=== PATIENT | female | born 1990 | race Caucasian/White ===

== ENCOUNTER 2017-12-03 14:19 | Emergency (ER) | payer OTHER ==
[~2017-12-03] VITALS: Ht 162.5 cm; Wt 95.3 kg
[~2017-12-03 14:19] MED LIST: AMOXIL500 MG PO; ATARAX25 MG PO; CEPHALEXIN500 M1 PO; CLARITIN-D 12 H1 TAB PO; COLACE100 MG PO; DOCUSATE SODIU100 M2 PO; FERROUS SULFAT325 MG PO; IBU-8800 MG PO; IRON325 M1; MOTRIN800 MG PO; NKHM; OXYCODONE5 MG; PERCOCET 325 MG1 TA7 PO; PREDNICOT20 MG PO; PREDNISONE20 MG PO; PRENATAL1 TA1 PO; PRENATAL1 TAB PO; PREVACID30 M1 PO; ROBAXIN750 MG PO; SEROQUEL25 MG PO; TOBRADEX 0.1%-2.5 M1 OP; TRAMADOL HCL50 MG PO; VISTARIL25 M2 PO; XANAX1 MG PO; ZITHROMAX Z PA250 MG PO; ZITHROMAX250 MG PO
== END 2017-12-03 15:31 | disposition other institution (70) ==
LOC: ED 14:19
DX: O26.893 Other specified pregnancy related conditions, third trimester (principal); Z3A.37 37 weeks gestation of pregnancy

== ENCOUNTER 2017-12-18 22:35 | Emergency (ER) | payer OTHER ==
[~2017-12-18] VITALS: Ht 162.5 cm; Wt 85.7 kg
[2017-12-18 23:35] LABS: BASO % 0.3 % (0.0-1.0); EOS % 0.3 % (1.0-4.0); HEMATOCRIT 35.2 % (37.0-47.0); HEMOGLOBIN 10.8 g/dl (12.0-16.0); LYMPH # 1.6 10*3/uL (1.3-4.4); LYMPH % 14.1 % (27.0-41.0); MEAN CELL VOLUME 85.4 fl (81.0-99.0); MEAN CORPUSCULAR HGB 26.2 pg (27.0-31.0); MEAN CORPUSCULAR HGB CONC 30.7 g/dl (33.0-37.0); MEAN PLATELET VOLUME 9.9 fl (9.6-12.3); MONO # 0.6 10*3/uL (0.1-1.0); NEUT # 8.9 10*3/uL (2.3-7.9); NEUT % 79.6 % (47.0-73.0); PLATELET COUNT AUTOMATED 263 10*3/uL (130-400); RED BLOOD COUNT 4.12 10*6/uL (4.10-5.10); RED CELL DISTRI WIDTH 15.5 % (0-14.5); WHITE BLOOD COUNT 11.2 10*3/uL (4.8-10.8)
[2017-12-18 23:51] LABS: ALBUMIN 2.8 gm/dl (3.1-4.5); ALKALINE PHOSPHATASE 107 U/L (45-117); BUN 10 mg/dl (7-24); CHLORIDE 108 mmol/L (98-107); CREATININE 0.64 mg/dL (0.55-1.02); POTASSIUM 3.3 mmol/L (3.5-5.1); SGOT/AST 8 IU/L (3-35); SGPT/ALT 11 U/L (12-78); SODIUM 140 mmol/L (136-145)
[2017-12-19 00:46] LABS: BILIRUBIN NEGATIVE (NEGATIVE); BLOOD 3+ (NEGATIVE); CLARITY CLEAR (CLEAR); COLOR YELLOW (YELLOW); GLUCOSE NEGATIVE (NEGATIVE); KETONE NEGATIVE (NEGATIVE); LEUKO ESTERASE 2+ (NEGATIVE); NITRITE NEGATIVE (NEGATIVE); UROBILINOGEN 0.2 E.U./dl (0.2-1.0)
[2017-12-19] MEDS ORDERED: FLOMAX0.4 MG PO (00:50)
[2017-12-19] MEDS ORDERED: TYLENOL325 M1 PO (00:50)
[2017-12-19 01:06] LABS: BACTERIA TRACE; RBC 16-20 rbc/hpf (0-2); WBC 31-40 wbc/hpf (0-5)
[2017-12-19] MEDS ORDERED: CEPHALEXIN500 M1 PO (01:11)
[2017-12-19] MEDS ORDERED: SEPTDS PO (01:11)
[2017-12-19] MEDS ORDERED: HIBICLENS118 ML T (01:26)
== END 2017-12-19 01:16 | disposition home or self-care (01) ==
LOC: ED 22:35
PROVIDERS: Nurse Practitioner
DX: O85 Puerperal sepsis (principal); O90.0 Disruption of cesarean delivery wound; O86.29 Other urinary tract infection following delivery; O99.335 Smoking (tobacco) complicating the puerperium; F17.200 Nicotine dependence, unspecified, uncomplicated; Z71.6 Tobacco abuse counseling

== ENCOUNTER 2019-01-06 12:01 | Emergency (ER) | payer MEDICAID ==
[~2019-01-06] VITALS: Ht 162.5 cm; Wt 81.6 kg
[~2019-01-06 12:01] MED LIST changes: +FLOMAX0.4 MG PO; +HIBICLENS118 ML T; +SEPTDS PO; +TYLENOL325 M1 PO
== END 2019-01-06 13:46 | disposition home or self-care (01) ==
LOC: ED 12:01
DX: S93.402A Sprain of unspecified ligament of left ankle, initial encounter (principal); X50.1XXA Overexertion from prolonged static or awkward postures, initial encounter; Y93.01 Activity, walking, marching and hiking; Y92.89 Other specified places as the place of occurrence of the external cause; Y99.0 Civilian activity done for income or pay

== ENCOUNTER 2019-04-28 13:23 | Emergency (ER) | payer MEDICAID ==
[~2019-04-28] VITALS: Ht 5334 cm
[2019-04-28 13:50] LABS: BILIRUBIN NEGATIVE (NEGATIVE); CLARITY SL CLOUDY (CLEAR); COLOR YELLOW (YELLOW); GLUCOSE NEGATIVE (NEGATIVE); KETONE NEGATIVE (NEGATIVE)
[2019-04-28 13:51] LABS: BLOOD TRACE-INTACT (NEGATIVE); EPITHELIAL CELLS TNTC; LEUKO ESTERASE TRACE (NEGATIVE); NITRITE NEGATIVE (NEGATIVE); PH 5.5 (5.0-9.0); RBC 0-2 rbc/hpf (0-2); SPECIFIC GRAVITY >= 1.030 (1.005-1.030); UROBILINOGEN 0.2 E.U./dl (0.2-1.0)
[2019-04-28] MEDS ORDERED: PRENATAL TABLE1 EAC2 PO (13:59)
== END 2019-04-28 14:05 | disposition home or self-care (01) ==
LOC: ED 13:23
PROVIDERS: Nurse Practitioner Family
DX: Z32.00 Encounter for pregnancy test, result unknown (principal); F17.200 Nicotine dependence, unspecified, uncomplicated; Z79.2 Long term (current) use of antibiotics; Z79.899 Other long term (current) drug therapy

== ENCOUNTER 2020-03-24 16:57 | Emergency (ER) | payer MEDICAID ==
[~2020-03-24] VITALS: Ht 162.5 cm; Wt 81.2 kg
[~2020-03-24 16:57] MED LIST changes: +PRENATAL TABLE1 EAC2 PO
[2020-03-24] MEDS ORDERED: 'XANAX1 MG PO (17:25)
[2020-03-24] MEDS ORDERED: MINIPRESS1 M1 PO (17:25)
[2020-03-24] MEDS ORDERED: IBUPROFEN600 MG PO ×2 (18:45)
== END 2020-03-24 18:46 | disposition home or self-care (01) ==
LOC: ED 16:57
DX: S83.92XA Sprain of unspecified site of left knee, initial encounter (principal); Z79.899 Other long term (current) drug therapy; X58.XXXA Exposure to other specified factors, initial encounter; Y93.89 Activity, other specified; Y92.89 Other specified places as the place of occurrence of the external cause; Y99.8 Other external cause status

== ENCOUNTER 2020-05-08 17:42 | Emergency (ER) | payer MEDICAID ==
[~2020-05-08] VITALS: Ht 162.5 cm; Wt 77.6 kg
[~2020-05-08 17:42] MED LIST changes: +'XANAX1 MG PO; +IBUPROFEN600 MG PO; +MINIPRESS1 M1 PO
== END 2020-05-08 23:26 | disposition home or self-care (01) ==
LOC: ED 17:42
DX: S92.511A Displaced fracture of proximal phalanx of right lesser toe(s), initial encounter for closed fracture (principal); F17.200 Nicotine dependence, unspecified, uncomplicated; Z86.14 Personal history of Methicillin resistant Staphylococcus aureus infection; W22.8XXA Striking against or struck by other objects, initial encounter; Y93.72 Activity, wrestling; Y92.89 Other specified places as the place of occurrence of the external cause; Y99.8 Other external cause status

== ENCOUNTER 2020-11-20 16:17 | Emergency (ER) | payer OTHER ==
[~2020-11-20] VITALS: Ht 162.5 cm; Wt 81.2 kg
[2020-11-20] MEDS ORDERED: TYLENOL325 M1 PO (18:33)
[2020-11-20] MEDS ORDERED: NAPROXEN250 MG PO (18:33)
== END 2020-11-20 19:26 | disposition home or self-care (01) ==
LOC: ED 16:17
DX: S93.401A Sprain of unspecified ligament of right ankle, initial encounter (principal); F17.200 Nicotine dependence, unspecified, uncomplicated; E66.9 Obesity, unspecified; W10.8XXA Fall (on) (from) other stairs and steps, initial encounter; Y93.F9 Activity, other caregiving; Y92.238 Other place in hospital as the place of occurrence of the external cause; Y99.0 Civilian activity done for income or pay

== ENCOUNTER 2020-12-31 18:42 | Emergency (ER) | payer OTHER ==
[~2020-12-31] VITALS: Ht 162.5 cm; Wt 95.3 kg
[~2020-12-31 18:42] MED LIST changes: +NAPROXEN250 MG PO
[2020-12-31] MEDS ORDERED: NAPROXEN250 MG PO (20:15)
== END 2020-12-31 20:20 | disposition home or self-care (01) ==
LOC: ED 18:42
DX: S83.92XA Sprain of unspecified site of left knee, initial encounter (principal); Z79.899 Other long term (current) drug therapy; X50.1XXA Overexertion from prolonged static or awkward postures, initial encounter; Y93.72 Activity, wrestling; Y92.098 Other place in other non-institutional residence as the place of occurrence of the external cause; Y99.8 Other external cause status

== ENCOUNTER 2021-09-08 12:12 | Emergency (ER) | payer OTHER ==
[~2021-09-08] VITALS: Wt 84.8 kg
== END 2021-09-08 14:07 | disposition home or self-care (01) ==
LOC: ED 12:12
DX: S93.491A Sprain of other ligament of right ankle, initial encounter (principal); X50.1XXA Overexertion from prolonged static or awkward postures, initial encounter; Y93.89 Activity, other specified; Y92.89 Other specified places as the place of occurrence of the external cause; Y99.8 Other external cause status

== ENCOUNTER 2022-03-12 12:38 | Emergency (ER) | payer OTHER ==
[~2022-03-12] VITALS: Ht 167.6 cm; Wt 90.7 kg
== END 2022-03-12 13:58 | disposition left against medical advice (07) ==
LOC: ED 12:38
DX: M25.571 Pain in right ankle and joints of right foot (principal); Z53.21 Procedure and treatment not carried out due to patient leaving prior to being seen by health care provider

== ENCOUNTER 2023-02-27 13:05 | Emergency (ER) | payer OTHER ==
[~2023-02-27] VITALS: Ht 162.5 cm; Wt 81.2 kg
== END 2023-02-27 16:31 | disposition home or self-care (01) ==
LOC: ED 13:05
DX: N91.2 Amenorrhea, unspecified (principal)

== ENCOUNTER 2023-03-11 16:55 | Emergency (ER) | payer OTHER ==
[~2023-03-11] VITALS: Wt 81.2 kg
== END 2023-03-11 20:09 | disposition home or self-care (01) ==
LOC: ED 16:55
DX: S93.401A Sprain of unspecified ligament of right ankle, initial encounter (principal); X50.1XXA Overexertion from prolonged static or awkward postures, initial encounter; Y93.89 Activity, other specified; Y92.89 Other specified places as the place of occurrence of the external cause; Y99.8 Other external cause status

== ENCOUNTER 2023-05-17 11:59 | Emergency (ER) | payer OTHER ==
[~2023-05-17] VITALS: Ht 162.5 cm; Wt 83.9 kg
[2023-05-17] MEDS ORDERED: CETRAXAL1 EACH OT (12:29)
[2023-05-17] MEDS ORDERED: NICODERM CQ1 EAC2 TD (12:29)
[2023-05-17] MEDS ORDERED: AMOX-CLAV 875-1 EACH PO (12:29)
== END 2023-05-17 12:36 | disposition home or self-care (01) ==
LOC: ED 11:59
DX: H66.92 Otitis media, unspecified, left ear (principal); H60.92 Unspecified otitis externa, left ear; F17.210 Nicotine dependence, cigarettes, uncomplicated